=== PATIENT | female | born 1965 | race Two or more races ===

== ENCOUNTER 2017-04-12 14:18 | Emergency (ER) | payer MEDICAID ==
[~2017-04-12] VITALS: Ht 154.9 cm; Wt 68.0 kg
[2017-04-12] MEDS ORDERED: ACETAMINOPHEN 500 MG TAB PO ONE (14:30)
[2017-04-12 14:58] VITALS: BP 137/88
[2017-04-12] MEDS ORDERED: cefTRIAXone SOD 1,000 MG VL IM ONE (15:15)
== END 2017-04-12 15:47 | disposition home or self-care (01) ==
LOC: ER 14:18
DX: J03.80 Acute tonsillitis due to other specified organisms (principal); J06.9 Acute upper respiratory infection, unspecified; I10 Essential (primary) hypertension; E78.00 Pure hypercholesterolemia, unspecified
CPT/HCPCS: 71046; 96372; 99284; J0696

== ENCOUNTER 2017-11-17 11:02 | Emergency (ER) | payer MEDICAID ==
[~2017-11-17] VITALS: Ht 157.5 cm; Wt 70.3 kg
[2017-11-17 11:08] VITALS: BP 154/82
[2017-11-17 11:20] LABS: Urine WBC None Seen /hpf (0 - 5)
[2017-11-17 12:01] LABS: Urine Bacteria FEW /hpf (None Seen); Urine Blood Negative /uL (Negative)
[2017-11-17] MEDS ORDERED: KETOROLAC TROMETH 60MG/2ML VIAL IM ONE (13:30)
== END 2017-11-17 14:25 | disposition home or self-care (01) ==
LOC: ER 11:02
DX: G89.29 Other chronic pain (principal); M54.5 Low back pain; E78.5 Hyperlipidemia, unspecified; I10 Essential (primary) hypertension; M19.90 Unspecified osteoarthritis, unspecified site
CPT/HCPCS: 81001; 93005; 96372; 99285; J1885

== ENCOUNTER 2018-05-16 15:59 | Emergency (ER) | payer MEDICAID ==
[~2018-05-16] VITALS: Ht 160 cm; Wt 72.6 kg
[2018-05-16] MEDS ORDERED: SUMAtriptan SUCCINATE 6 MG/0.5 ML VL SC ONE (16:15)
[2018-05-16] MEDS ORDERED: ONDANSETRON ODT 4 MG TAB PO ONE (16:15)
[2018-05-16 19:43] VITALS: BP 123/79
== END 2018-05-16 21:56 | disposition home or self-care (01) ==
LOC: EDUNIT# 15:59 → ER 16:06
DX: R51 Headache (principal); I10 Essential (primary) hypertension; E78.5 Hyperlipidemia, unspecified
CPT/HCPCS: 70450; 96372; 99284; J3030; Q0162

== ENCOUNTER 2022-05-03 18:04 | Emergency (ER) | payer OTHER, MEDICAID ==
[~2022-05-03] VITALS: Ht 154.9 cm; Wt 69.0 kg
[2022-05-03 18:18] VITALS: BP 133/80
[2022-05-03] MEDS ORDERED: KETOROLAC TROMETH 30 MG/ML 1ML VIAL IM ONE (21:15)
== END 2022-05-03 21:25 | disposition home or self-care (01) ==
LOC: ER 18:04
DX: M54.50 Low back pain, unspecified (principal)
CPT/HCPCS: 72100; 96372; 99283; J1885